=== PATIENT | male | born 1960 | race Caucasian/White ===

== ENCOUNTER 2022-09-17 18:04 | Inpatient (IN) | payer MEDICAID ==
[~2022-09-17] VITALS: Ht 188 cm; Wt 68.0 kg
[~2022-09-17 18:04] MED LIST: BENA5TAB9 PO; OLAN2.5T2 PO
[2022-09-17] MEDS ORDERED: PIPERACILLIN-TAZOB 3.375GM 100 ML IV ONE (19:00)
[2022-09-17 19:33] LABS: Basophils # (auto) 0.1 10 ^3/uL (0-0.2); Eosinophils # (auto) 0.3 10 ^3/uL (0-0.8); Hematocrit 29.1 % (41.0-53.0); Lymphocytes # (auto) 1.1 10 ^3/uL (0.4-5.4); Mean Corpuscular Hemoglobin 29.1 pg (28.0-32.0); Neutrophils # (auto) 7.5 10 ^3/uL (1.6-8.6); Red Cell Distribution Width 14.8 % (11.8-14.3)
[2022-09-17 19:34] LABS: Eosinophils % (auto) 2.7 % (0.0-7.0); Hemoglobin 9.8 g/dL (13.5-17.5); Lymphocytes % (auto) 10.8 % (10.0-50.0); Mean Corpuscular Hgb Conc. 33.8 g/dL (32.0-36.0); Mean Corpuscular Volume 86.2 fL (80.0-100.0); Monocytes # (auto) 1.1 10 ^3/uL (0-1.3); Monocytes % (auto) 10.8 % (0.0-12.0); Neutrophils % (auto) 74.7 % (37.0-80.0); Red Blood Cells 3.38 10^6/uL (4.5-5.90)
[2022-09-17 19:56] LABS: Albumin 2.5 g/dL (3.4-5.0); Calcium 7.8 mg/dL (8.5-10.1); Potassium 3.9 mmol/L (3.5-5.1)
[2022-09-17 19:58] LABS: BUN/Creatinine Ratio 15.7 (10.0-20.0)
[2022-09-17 19:59] LABS: Bilirubin, Total 0.1 mg/dL (0.2-1.0); Total Protein 6.8 g/dL (6.4-8.2)
[2022-09-17] MEDS ORDERED: ONDANSETRON HCL 4 MG/2 ML VIAL IV PRN (21:30)
[2022-09-17] MEDS ORDERED: ACETAMINOPHEN 325 MG TAB PO PRN (21:30)
[2022-09-17] MEDS ORDERED: DOCUSATE SOD 100 MG CAP PO PRN (21:30)
[2022-09-17] MEDS ORDERED: ALBUMIN 25% 100 ML IV ONE (21:30)
[2022-09-17] MEDS ORDERED: HYDROcodone-ACET 5/325MG TAB PO PRN (21:30)
[2022-09-17] MEDS ORDERED: MORPHINE SULFATE INJ 2 MG/ml SYRG IV PRN (21:45)
[2022-09-17] MEDS ORDERED: NITROGLYCERIN 0.4 MG SL TAB SL PRN (21:45)
[2022-09-17] MEDS: SODIUM CHLORIDE 0.9% 1,000 ML IV SCH (22:06)
[2022-09-18 02:43] VITALS: BP 166/98
[2022-09-18] MEDS: hydrALAZINE HCL 20 MG/ML VL IV PRN (02:43)
[2022-09-18] MEDS ORDERED: PIPERACILLIN-TAZOB 3.375GM 100 ML IV SCH (08:00)
[2022-09-18 09:00] VITALS: BP 125/78
[2022-09-18] MEDS: ENOXAPARIN SOD 40 MG/0.4 ML SYRINGE SC SCH (09:48)
[2022-09-18 13:00] VITALS: BP 129/76
[2022-09-18 13:27] LABS: Basophils # (auto) 0.1 10 ^3/uL (0-0.2); Basophils % (auto) 1.2 % (0.0-2.0); Eosinophils # (auto) 0.2 10 ^3/uL (0-0.8); Eosinophils % (auto) 2.5 % (0.0-7.0); Hematocrit 29.8 % (41.0-53.0); Hemoglobin 9.8 g/dL (13.5-17.5); Lymphocytes # (auto) 1.3 10 ^3/uL (0.4-5.4); Lymphocytes % (auto) 16.3 % (10.0-50.0); Mean Corpuscular Hemoglobin 29.1 pg (28.0-32.0); Mean Corpuscular Volume 88.1 fL (80.0-100.0); Monocytes # (auto) 0.7 10 ^3/uL (0-1.3); Monocytes % (auto) 9.4 % (0.0-12.0); Neutrophils # (auto) 5.5 10 ^3/uL (1.6-8.6); Neutrophils % (auto) 70.6 % (37.0-80.0); Red Blood Cells 3.38 10^6/uL (4.5-5.90); White Blood Cell 7.8 10^3/uL (4.4-10.8)
[2022-09-18 13:49] LABS: Albumin 2.5 g/dL (3.4-5.0); Calcium 7.7 mg/dL (8.5-10.1); Potassium 4.4 mmol/L (3.5-5.1)
[2022-09-18 13:53] LABS: BUN/Creatinine Ratio 13.5 (10.0-20.0); Bilirubin, Total 0.2 mg/dL (0.2-1.0); Total Protein 5.9 g/dL (6.4-8.2)
[2022-09-18] MEDS ORDERED: VANCOMYCIN 1GM/250ML 250 ML IV ONE (16:00)
[2022-09-18] MEDS ORDERED: VANCOMYCIN PER PHARMACY 0 MG IV SCH (16:00)
[2022-09-18 17:00] VITALS: BP 129/78
[2022-09-18] MEDS: SODIUM CHLORIDE 0.9% 1,000 ML IV SCH (17:07)
[2022-09-18 20:00] VITALS: BP 149/96
[2022-09-18] MEDS: CEFEPIME 1GM/ 50ML 50 ML IV SCH (21:57)
[2022-09-18 22:00] VITALS: BP 149/96
[2022-09-18] MEDS ORDERED: VANCOMYCIN 1GM/250ML 250 ML IV SCH (22:00)
[2022-09-18] MEDS: DAKINS QUARTER STR 0.125% (NaHypochlorite) 473 ML TOPICAL SOL TOP SCH (22:03)
[2022-09-19] VITALS (7 sets, daily range): BP systolic 110–157; BP diastolic 68–102
[2022-09-19] MEDS: VANCOMYCIN 1GM/250ML 250 ML IV SCH ×2 (04:32→17:49)
[2022-09-19] MEDS: hydrALAZINE HCL 20 MG/ML VL IV PRN (06:11)
[2022-09-19] MEDS: CEFEPIME 1GM/ 50ML 50 ML IV SCH ×3 (06:13→22:15)
[2022-09-19] MEDS: SODIUM CHLORIDE 0.9% 1,000 ML IV SCH ×2 (06:50→23:43)
[2022-09-19] MEDS: DAKINS QUARTER STR 0.125% (NaHypochlorite) 473 ML TOPICAL SOL TOP SCH ×2 (10:00→22:15)
[2022-09-19] MEDS: ENOXAPARIN SOD 40 MG/0.4 ML SYRINGE SC SCH (10:42)
[2022-09-20 05:00] VITALS: BP 136/91
[2022-09-20] MEDS: VANCOMYCIN 1GM/250ML 250 ML IV SCH ×3 (05:00→22:06)
[2022-09-20] MEDS: CEFEPIME 1GM/ 50ML 50 ML IV SCH ×3 (05:43→23:12)
[2022-09-20 07:30] VITALS: BP 120/87
[2022-09-20 09:25] VITALS: BP 120/87
[2022-09-20] MEDS: DAKINS QUARTER STR 0.125% (NaHypochlorite) 473 ML TOPICAL SOL TOP SCH ×2 (10:00→22:00)
[2022-09-20] MEDS: ENOXAPARIN SOD 40 MG/0.4 ML SYRINGE SC SCH (10:13)
[2022-09-20 13:03] VITALS: BP 135/81
[2022-09-20] MEDS: SODIUM CHLORIDE 0.9% 1,000 ML IV SCH (16:10)
[2022-09-20 22:00] VITALS: BP 137/94
[2022-09-21] VITALS (7 sets, daily range): BP systolic 129–153; BP diastolic 93–102
[2022-09-21] MEDS: CEFEPIME 1GM/ 50ML 50 ML IV SCH ×2 (05:57→15:14)
[2022-09-21] MEDS: DAKINS QUARTER STR 0.125% (NaHypochlorite) 473 ML TOPICAL SOL TOP SCH (10:00)
[2022-09-21] MEDS: SODIUM CHLORIDE 0.9% 1,000 ML IV SCH (10:46)
[2022-09-21] MEDS: VANCOMYCIN 1GM/250ML 250 ML IV SCH ×2 (10:46→23:18)
[2022-09-21] MEDS: ENOXAPARIN SOD 40 MG/0.4 ML SYRINGE SC SCH (10:47)
[2022-09-22] MEDS: DAKINS QUARTER STR 0.125% (NaHypochlorite) 473 ML TOPICAL SOL TOP SCH ×3 (00:06→21:24)
[2022-09-22] MEDS: SODIUM CHLORIDE 0.9% 1,000 ML IV SCH ×2 (01:30→18:23)
[2022-09-22] MEDS: CEFEPIME 1GM/ 50ML 50 ML IV SCH ×3 (03:24→21:24)
[2022-09-22 05:00] VITALS: BP 148/91
[2022-09-22 09:00] VITALS: BP 140/91
[2022-09-22] MEDS: ENOXAPARIN SOD 40 MG/0.4 ML SYRINGE SC SCH (09:33)
[2022-09-22] MEDS: VANCOMYCIN 1GM/250ML 250 ML IV SCH ×2 (11:38→21:24)
[2022-09-22 13:00] VITALS: BP 143/89
[2022-09-22 17:00] VITALS: BP 148/97
[2022-09-22] MEDS: Juven Orange Powder PACKET 27.5gm PO SCH (17:20)
[2022-09-22 20:00] VITALS: BP 138/79
[2022-09-22 22:00] VITALS: BP 138/79
[2022-09-23 05:00] VITALS: BP 131/88
[2022-09-23] MEDS: CEFEPIME 1GM/ 50ML 50 ML IV SCH ×2 (05:37→13:03)
[2022-09-23] MEDS: SODIUM CHLORIDE 0.9% 1,000 ML IV SCH (05:49)
[2022-09-23] MEDS: Juven Orange Powder PACKET 27.5gm PO SCH ×2 (08:00→17:06)
[2022-09-23 09:00] VITALS: BP 154/97
[2022-09-23] MEDS: ENOXAPARIN SOD 40 MG/0.4 ML SYRINGE SC SCH (10:00)
[2022-09-23] MEDS: VANCOMYCIN 1GM/250ML 250 ML IV SCH (10:00)
[2022-09-23] MEDS: DAKINS QUARTER STR 0.125% (NaHypochlorite) 473 ML TOPICAL SOL TOP SCH (10:00)
[2022-09-23] MEDS ORDERED: AUG875T PO (10:50)
[2022-09-23 13:00] VITALS: BP 135/92
== END 2022-09-23 18:25 | disposition home health service (06) | DRG 844 ==
LOC: ER 18:04 → EDBD 18:04 → OVERFLOW 21:42 → WEST WING 09-18 01:55
PROVIDERS: ADMIT Nurse Practitioner Family; ATTEND Internal Medicine Geriatric Medicine
DX: T25.022A Burn of unspecified degree of left foot, initial encounter (principal); E44.0 Moderate protein-calorie malnutrition; L03.116 Cellulitis of left lower limb; E88.09 Other disorders of plasma-protein metabolism, not elsewhere classified; L97.529 Non-pressure chronic ulcer of other part of left foot with unspecified severity; D75.839 Thrombocytosis, unspecified; D64.9 Anemia, unspecified; F17.200 Nicotine dependence, unspecified, uncomplicated; X08.8XXA Exposure to other specified smoke, fire and flames, initial encounter; Y93.89 Activity, other specified; Y92.89 Other specified places as the place of occurrence of the external cause; Z68.1 Body mass index [BMI] 19.9 or less, adult; Z88.8 Allergy status to other drugs, medicaments and biological substances; Y99.8 Other external cause status
CPT/HCPCS: 36415; 73630; 80053; 80202; 82565; 85025; 87077; 87186; 87205; 93971; 96365; 96366; 96368; G0378; J2543; P9047

== ENCOUNTER 2022-12-21 14:35 | Inpatient (IN) | payer MEDICAID ==
[~2022-12-21] VITALS: Ht 182.9 cm; Wt 68.3 kg
[~2022-12-21 14:35] MED LIST changes: +AUG875T PO
[2022-12-21 15:56] LABS: Basophils # (auto) 0.1 10 ^3/uL (0-0.2); Eosinophils # (auto) 0.1 10 ^3/uL (0-0.8); Hematocrit 32.6 % (41.0-53.0); Hemoglobin 10.5 g/dL (13.5-17.5); Mean Corpuscular Hgb Conc. 32.3 g/dL (32.0-36.0); Monocytes # (auto) 0.6 10 ^3/uL (0-1.3); Neutrophils # (auto) 3.4 10 ^3/uL (1.6-8.6); White Blood Cell 5.2 10^3/uL (4.4-10.8)
[2022-12-21 15:57] LABS: Basophils % (auto) 2.5 % (0.0-2.0); Eosinophils % (auto) 2.6 % (0.0-7.0); Lymphocytes % (auto) 19.6 % (10.0-50.0); Mean Corpuscular Hemoglobin 25.6 pg (28.0-32.0); Mean Corpuscular Volume 79.4 fL (80.0-100.0); Monocytes % (auto) 10.7 % (0.0-12.0); Neutrophils % (auto) 64.6 % (37.0-80.0); Red Cell Distribution Width 16.7 % (11.8-14.3)
[2022-12-21 16:15] LABS: Albumin 4.2 g/dL (3.2-4.8); Alkaline Phosphatase 90 U/L (46-116); Anion Gap 5 (5-15); Aspartate Aminotransferase 11 U/L (13-40); BUN/Creatinine Ratio 10.3 (10.0-20.0); Bilirubin, Total 0.2 mg/dL (0.2-1.0); Blood Urea Nitrogen 10 mg/dL (9-23); Calcium 9.3 mg/dL (8.5-10.1); Carbon Dioxide 27 mmol/L (20-30); Chloride 102 mmol/L (98-107); Glucose 104 mg/dL (74-106); Potassium 4.2 mmol/L (3.5-5.1); Sodium 134 mmol/L (136-145); Total Protein 7.8 g/dL (5.7-8.2)
[2022-12-21 16:16] LABS: Alanine Aminotransferase < 9 U/L (7-40)
[2022-12-21] MEDS ORDERED: VANCOMYCIN 1GM/250ML 250 ML IV ONE (16:30)
[2022-12-21] MEDS ORDERED: ACETAMINOPHEN 325 MG TAB PO PRN (16:45)
[2022-12-21] MEDS ORDERED: VANCOMYCIN PER PHARMACY 0 MG IV SCH (16:45)
[2022-12-21 17:06] LABS: Erythrocyte Sedimentation Rate 64 mm/hr (0-20)
[2022-12-21] MEDS: SODIUM CHLORIDE 0.9% 1,000 ML IV SCH (17:17)
[2022-12-21 19:25] VITALS: PULSE 84; RESP 14; O2SAT 97
[2022-12-21] MEDS: OLANZapine 5 MG TAB PO SCH (22:22)
[2022-12-21] MEDS: ASCORBIC ACID 500 MG TAB PO SCH (22:22)
[2022-12-21 22:53] LABS: Urine Bacteria NONE SEEN /hpf (None Seen); Urine Blood Negative /uL (Negative); Urine Clarity Clear (Clear); Urine Color Yellow (Yellow); Urine Hyaline Cast FEW /lpf (0 - 2); Urine Protein, UAD Negative (Negative); Urine Specific Gravity 1.011 (1.001-1.035); Urine Urobilinogen Normal (Negative); Urine WBC <1 /hpf (0 - 3); Urine pH 6.5 (5.0-8.0)
[2022-12-22] VITALS (7 sets, daily range): BP systolic 125–156; BP diastolic 69–103; PULSE 60–75; RESP 15–18; TEMP 97.4–98.5; O2SAT 97–99
[2022-12-22] MEDS: SODIUM CHLORIDE 0.9% 1,000 ML IV SCH ×3 (01:06→14:24)
[2022-12-22] MEDS ORDERED: VANCOMYCIN 750mg/250ml 250 ML IV SCH ×2 (05:00→05:15)
[2022-12-22] MEDS: OLANZapine 5 MG TAB PO SCH ×2 (08:44→21:43)
[2022-12-22] MEDS: ZINC SULFATE 220mg CAP or TAB PO SCH (08:51)
[2022-12-22] MEDS: ASCORBIC ACID 500 MG TAB PO SCH ×2 (08:51→21:43)
[2022-12-22] MEDS: MULTIPLE VITAMIN TAB PO SCH (08:51)
[2022-12-22] MEDS: BENAZEPRIL HCL 10 MG TAB PO SCH (08:52)
[2022-12-22] MEDS: ENOXAPARIN SOD 40 MG/0.4 ML SYRINGE SC SCH (08:55)
[2022-12-22] MEDS: VANCOMYCIN 750mg/250ml 250 ML IV SCH ×2 (08:57→20:08)
[2022-12-22 14:03] LABS: Basophils # (auto) 0.1 10 ^3/uL (0-0.2); Eosinophils # (auto) 0.3 10 ^3/uL (0-0.8); Eosinophils % (auto) 4.4 % (0.0-7.0)
[2022-12-22 14:04] LABS: Basophils % (auto) 1.4 % (0.0-2.0); Hematocrit 32.6 % (41.0-53.0); Hemoglobin 10.6 g/dL (13.5-17.5); Lymphocytes # (auto) 0.9 10 ^3/uL (0.4-5.4); Lymphocytes % (auto) 15.6 % (10.0-50.0); Mean Corpuscular Hemoglobin 26.1 pg (28.0-32.0); Mean Corpuscular Hgb Conc. 32.7 g/dL (32.0-36.0); Monocytes # (auto) 0.6 10 ^3/uL (0-1.3); Monocytes % (auto) 10.4 % (0.0-12.0); Neutrophils # (auto) 4.1 10 ^3/uL (1.6-8.6); Neutrophils % (auto) 68.2 % (37.0-80.0); Red Blood Cells 4.07 10^6/uL (4.5-5.90); Red Cell Distribution Width 16.7 % (11.8-14.3)
[2022-12-22] MEDS: ceFAZolin 1GM/50ML 50 ML IV SCH ×2 (14:26→21:43)
[2022-12-22 14:54] LABS: Albumin 3.8 g/dL (3.2-4.8); Alkaline Phosphatase 88 U/L (46-116); Anion Gap 1 (5-15); Aspartate Aminotransferase 8 U/L (13-40); Blood Urea Nitrogen 9 mg/dL (9-23); Calcium 8.7 mg/dL (8.7-10.4); Carbon Dioxide 30 mmol/L (20-30); Chloride 108 mmol/L (98-107); Glucose 88 mg/dL (74-106); Potassium 4.2 mmol/L (3.5-5.1); Sodium 139 mmol/L (136-145)
[2022-12-22 14:55] LABS: Alanine Aminotransferase < 9 U/L (7-40); Bilirubin, Total 0.2 mg/dL (0.2-1.0); Total Protein 6.9 g/dL (5.7-8.2)
[2022-12-22] MEDS ORDERED: OLAN2.5T38 PO (15:54)
[2022-12-22] MEDS ORDERED: BENA5TAB9 PO (15:54)
[2022-12-23] MEDS: SODIUM CHLORIDE 0.9% 1,000 ML IV SCH ×3 (00:44→18:45)
[2022-12-23] MEDS: ceFAZolin 1GM/50ML 50 ML IV SCH ×3 (05:40→21:48)
[2022-12-23 07:12] LABS: Basophils # (auto) 0.1 10 ^3/uL (0-0.2); Basophils % (auto) 1.4 % (0.0-2.0); Eosinophils # (auto) 0.4 10 ^3/uL (0-0.8); Lymphocytes # (auto) 1.4 10 ^3/uL (0.4-5.4); Monocytes # (auto) 0.6 10 ^3/uL (0-1.3); Monocytes % (auto) 9.3 % (0.0-12.0)
[2022-12-23 07:15] LABS: Eosinophils % (auto) 5.9 % (0.0-7.0); Hematocrit 32.5 % (41.0-53.0); Hemoglobin 10.2 g/dL (13.5-17.5); Lymphocytes % (auto) 22.9 % (10.0-50.0); Mean Corpuscular Hemoglobin 25.5 pg (28.0-32.0); Mean Corpuscular Hgb Conc. 31.5 g/dL (32.0-36.0); Mean Corpuscular Volume 81.1 fL (80.0-100.0); Neutrophils # (auto) 3.7 10 ^3/uL (1.6-8.6); Neutrophils % (auto) 60.5 % (37.0-80.0); Red Blood Cells 4.01 10^6/uL (4.5-5.90); Red Cell Distribution Width 17.4 % (11.8-14.3); White Blood Cell 6.1 10^3/uL (4.4-10.8)
[2022-12-23 07:28] LABS: Albumin 3.3 g/dL (3.2-4.8); Alkaline Phosphatase 67 U/L (46-116); Anion Gap 6 (5-15); BUN/Creatinine Ratio 17.3 (10.0-20.0); Blood Urea Nitrogen 14 mg/dL (9-23); Calcium 8.4 mg/dL (8.5-10.1); Carbon Dioxide 24 mmol/L (20-30); Chloride 110 mmol/L (98-107); Glucose 93 mg/dL (74-106); Potassium 4.3 mmol/L (3.5-5.1); Sodium 140 mmol/L (136-145)
[2022-12-23 07:29] LABS: Aspartate Aminotransferase 8 U/L (13-40); Bilirubin, Total 0.2 mg/dL (0.2-1.0); Total Protein 5.8 g/dL (5.7-8.2)
[2022-12-23 07:35] LABS: Alanine Aminotransferase < 9 U/L (7-40)
[2022-12-23 07:39] LABS: INR 1.1 (0.9-1.15); Partial Thromboplastin Time 28.6 SEC (24.5-34.5); Prothrombin Time 11.5 sec (9.3-11.8)
[2022-12-23] MEDS: VANCOMYCIN 750mg/250ml 250 ML IV SCH ×2 (08:45→20:26)
[2022-12-23] MEDS: MULTIPLE VITAMIN TAB PO SCH (09:58)
[2022-12-23] MEDS: OLANZapine 5 MG TAB PO SCH ×2 (09:58→20:26)
[2022-12-23] MEDS: ZINC SULFATE 220mg CAP or TAB PO SCH (09:58)
[2022-12-23] MEDS: BENAZEPRIL HCL 10 MG TAB PO SCH (09:58)
[2022-12-23] MEDS: ASCORBIC ACID 500 MG TAB PO SCH ×2 (09:58→20:26)
[2022-12-23] MEDS: ENOXAPARIN SOD 40 MG/0.4 ML SYRINGE SC SCH (09:59)
[2022-12-23] MEDS ORDERED: DAKINS QUARTER STR 0.125% (NaHypochlorite) 473 ML TOPICAL SOL TOP ONE (11:45)
[2022-12-23] MEDS ORDERED: LIDOCAINE 1% HCL (LOCAL ANESTH.) INJ 20ML MDV ONE ×3 (12:14→12:28)
[2022-12-23] MEDS ORDERED: BUPIVACAINE 0.5% P/F INJ 10 ML VIAL ONE (12:15)
[2022-12-23] MEDS ORDERED: MIDAZOLAM HCL 2MG/2ML 2ml VIAL (1mg/ml) ONE (12:33)
[2022-12-23] MEDS ORDERED: MEPERIDINE HCL (25 MG/ML) 1ML VIAL ONE (12:33)
[2022-12-23] MEDS ORDERED: fentaNYL CITRATE 100 MCG/2 ML VL ONE (12:33)
[2022-12-23] MEDS ORDERED: PROPOFOL 10 MG/ML 20 ML IV ONE (13:20)
[2022-12-23] MEDS ORDERED: DexAMETHasone SOD PHOS 10MG/1ML VIAL INJ ONE (13:20)
[2022-12-23 13:24] VITALS: O2SAT 100
[2022-12-23] MEDS ORDERED: HYDROmorphone HCL 2 MG/ML VL/or syr IV PRN (13:30)
[2022-12-23] MEDS ORDERED: MIDAZOLAM HCL 2MG/2ML 2ml VIAL (1mg/ml) IV PRN (13:30)
[2022-12-23] MEDS ORDERED: LABETALOL HCL 5 MG/ML 4ML SYRINGE IV PRN (13:30)
[2022-12-23] MEDS ORDERED: ePHEDrine SULFATE 50 MG/ML AMP IV PRN (13:30)
[2022-12-23] MEDS ORDERED: ONDANSETRON HCL 4 MG/2 ML VIAL IV PRN (13:30)
[2022-12-23] MEDS ORDERED: MORPHINE SULFATE 4 MG/ML SYR/VIAL IV PRN (13:30)
[2022-12-23 16:51] VITALS: BP 139/78; PULSE 79; RESP 20; TEMP 98.4; O2SAT 96
[2022-12-23 22:00] VITALS: BP 139/99; PULSE 85; RESP 20; TEMP 98.7; O2SAT 100
[2022-12-24] MEDS: ceFAZolin 1GM/50ML 50 ML IV SCH ×3 (05:02→23:07)
[2022-12-24] MEDS: SODIUM CHLORIDE 0.9% 1,000 ML IV SCH ×3 (05:02→20:31)
[2022-12-24] MEDS: BENAZEPRIL HCL 10 MG TAB PO SCH ×2 (10:32→15:42)
[2022-12-24] MEDS: MULTIPLE VITAMIN TAB PO SCH (10:45)
[2022-12-24] MEDS: ZINC SULFATE 220mg CAP or TAB PO SCH (10:45)
[2022-12-24] MEDS: ASCORBIC ACID 500 MG TAB PO SCH ×2 (10:45→23:07)
[2022-12-24] MEDS: ENOXAPARIN SOD 40 MG/0.4 ML SYRINGE SC SCH (10:45)
[2022-12-24] MEDS: VANCOMYCIN 750mg/250ml 250 ML IV SCH ×2 (10:45→20:31)
[2022-12-24] MEDS: OLANZapine 5 MG TAB PO SCH ×2 (10:45→23:07)
[2022-12-24 19:45] VITALS: PULSE 96; RESP 18; O2SAT 99
[2022-12-24 22:00] VITALS: BP 137/89; PULSE 103; RESP 18; TEMP 98; O2SAT 97
[2022-12-25] MEDS: SODIUM CHLORIDE 0.9% 1,000 ML IV SCH ×2 (04:34→12:30)
[2022-12-25 05:00] VITALS: BP 129/84; PULSE 94; RESP 17; TEMP 98.4; O2SAT 97
[2022-12-25] MEDS: ceFAZolin 1GM/50ML 50 ML IV SCH (07:11)
[2022-12-25 08:00] VITALS: PULSE 89; RESP 17; O2SAT 97
[2022-12-25] MEDS: VANCOMYCIN 750mg/250ml 250 ML IV SCH (08:01)
[2022-12-25 09:00] VITALS: BP 127/81; PULSE 84; RESP 18; TEMP 97.9; O2SAT 99
[2022-12-25] MEDS ORDERED: CIPR-173 PO (09:03)
[2022-12-25] MEDS ORDERED: HYDR-4902 PO (09:04)
[2022-12-25] MEDS ORDERED: TRAM50TA2 PO (09:10)
[2022-12-25] MEDS ORDERED: ACE650RS PO (09:12)
[2022-12-25] MEDS: ENOXAPARIN SOD 40 MG/0.4 ML SYRINGE SC SCH (10:00)
[2022-12-25] MEDS ORDERED: CEFTRIAXONE SODIUM 2 GM in D5W 5% 100 ML IV SCH (10:00)
[2022-12-25] MEDS: ASCORBIC ACID 500 MG TAB PO SCH (10:05)
[2022-12-25] MEDS: ZINC SULFATE 220mg CAP or TAB PO SCH (10:06)
[2022-12-25] MEDS: MULTIPLE VITAMIN TAB PO SCH (10:06)
[2022-12-25] MEDS: OLANZapine 5 MG TAB PO SCH (10:07)
[2022-12-25] MEDS: BENAZEPRIL HCL 10 MG TAB PO SCH (10:07)
[2022-12-25 13:21] VITALS: BP 150/63; TEMP 36.6
== END 2022-12-25 15:00 | disposition home or self-care (01) | DRG 383 ==
LOC: ER 14:35 → OVERFLOW 16:36 → CENTRAL 12-22 03:10
PROVIDERS: ADMIT Nurse Practitioner Family; ATTEND Family Medicine
PROC: 0HBNXZZ Excision of Left Foot Skin, External Approach (ICD-10-PCS; principal; 2022-12-23 12:36)
DX: L03.116 Cellulitis of left lower limb (principal); E44.0 Moderate protein-calorie malnutrition; D64.9 Anemia, unspecified; B96.4 Proteus (mirabilis) (morganii) as the cause of diseases classified elsewhere; F17.210 Nicotine dependence, cigarettes, uncomplicated; I10 Essential (primary) hypertension; Z60.2 Problems related to living alone; S91.302A Unspecified open wound, left foot, initial encounter; X58.XXXA Exposure to other specified factors, initial encounter; Z71.6 Tobacco abuse counseling; Z82.49 Family history of ischemic heart disease and other diseases of the circulatory system; Y93.89 Activity, other specified; Z68.20 Body mass index [BMI] 20.0-20.9, adult; Y92.89 Other specified places as the place of occurrence of the external cause; Y99.8 Other external cause status
CPT/HCPCS: 36415; 71045; 73700; 80053; 80202; 81001; 85025; 85610; 85652; 85730; 87077; 87186; 87205; 93005; 93926; G0378; J0690; J0696; J1100; J2001; J2250; J2704; J3490; J7060

== ENCOUNTER 2024-02-21 14:48 | Emergency (ER) | payer MEDICAID ==
[~2024-02-21] VITALS: Ht 167.6 cm; Wt 60.0 kg
[~2024-02-21 14:48] MED LIST changes: +ACE650RS PO; +CIPR-173 PO; -OLAN2.5T2 PO; +OLAN2.5T38 PO
[2024-02-21 15:25] VITALS: PULSE 109; RESP 16; O2SAT 99
--- NOTE | 2024-02-21 15:29 | ED.PDOC ---
History of Present Illness HPI Comments 63 y/o M, with a Hx of anemia, HTN, and polysubstance abuse, is BIBA for c/o ALOC s/p seizure-like activity, today. Per EMS report, patient's neighbor called after witnessing the patient, suddenly, laid himself next to his vehicle, while outside, and proceeded to have a seizure, where his body "stiffen" then. On scene, patient was found next to his vehicle, w/o oral trauma or incontinence, stating non-comprehensible sentences, with a GCS 11, blood glucose of 144, and all remaining vitals within normal limits. EMS states on aforementioned personal reporting on patient acting different from his normal baseline. Patient has no other reported associated symptoms. Further Hx cannot be obtain, due to patient's current altered condition and absence of family/rn managed care historians, at time of assessment. Chief Complaint: Seizure Time Seen by MD: 15:10 Primary Care Provider: DANIEL Reviewed Notes: Nurses Notes, Car Installations Supervisor Notes, Medications, Allergies Allergies: Coded Allergies: Ibuprofen (Verified Adverse Reaction, Unknown, 02/02/10) Home Meds Active Scripts Acetaminophen (Tylenol) 650 Mg Rc, 650 MG PO TID, #30 SUPP.RECT Prov:DIPIKA LI MD 12/25/22 Ciprofloxacin Hcl (Cipro) 500 Mg Tab, 1 TAB PO BID, #60 TAB Prov:DIPIKA LI MD 12/25/22 Amoxicillin & Pot Clavulanate (AUGMENTIN TABLET) 875 Mg Tb, 875 MG PO BID for 10 Days, #20 TAB Prov:STALIN DAN MD 09/23/22 Reported Medications Benazepril Hcl (Benazepril Hcl) 5 Mg Tab, 5 MG PO DAILY, MG 12/22/22 Olanzapine (OLANZAPINE) 2.5 Mg Tab, 2 TAB PO DAILY for 30 Days, MG 12/22/22 Information Source: Patient, Emergency Med Personnel Mode of Arrival: EMS Severity: Moderate Timing: Hours Duration: Minutes Prehospital treatment: 12 Lead EKG, Accucheck (144), Fitting Room Attendant Past Medical History PAST MEDICAL HISTORY: Anemia, HTN Surgical History: Denies all surgeries Family History Family History: Family hx of HTN Social History Smoker: Cigarettes Alcohol: Occasionally Drugs: Marijuana Lives In: Home Constitutional: denies: chills, diaphoresis, fatigue, fever, malaise, sweats, weakness, others EENTM: denies: blurred vision, double vision, ear bleeding, ear discharge, ear drainage, ear pain, ear ringing, eye pain, eye redness, hearing loss, mouth pain, mouth swelling, nasal discharge, nose bleeding, nose congestion, nose pain, photophobia, tearing, throat pain, throat swelling, voice changes, others Respiratory: denies: cough, hemoptysis, orthopnea, SOB at rest, shortness of breath, SOB with excertion, stridor, wheezing, others Cardiovascular: denies: chest pain, dizzy spells, diaphoresis, Dyspnea on exertion, edema, irregular heart beat, left arm pain, lightheadedness, palpitations, PND, syncope, others Gastrointestinal: denies: abdomen distended, abdominal pain, blood streaked bowels, constipated, diarrhea, dysphagia, difficulty swallowing, hematemesis, melena, nausea, poor appetite, poor fluid intake, rectal bleeding, rectal pain, vomiting, others Genitourinary: denies: burning, dysuria, flank pain, frequency, hematuria, incontinence, penile discharge, penile sore, pain, testicle pain, testicle sw elling, urgency, others Neurological: reports: seizure; denies: dizziness, fainting, headache, left sided numbness, left sided weakness, numbness, paresthesia, pre-existing deficit, right sided numbness, right sided weakness, speech problems, tingling, tremors, weakness, others Musculoskeletal: denies: back pain, gout, joint pain, joint swelling, muscle pain, muscle stiffness, neck pain, others Integumetry: denies: bruises, change in color, change in hair/nails, dryness, laceration, lesions, lumps, rash, wounds, others Allergic/Immunocompromised: denies: Difficulty Healing, Frequent Infections, Hives, Itching, others Hematologic/Lymphatic: denies: anemia, blood clots, easy bleeding, easy bruising, swollen glands, others Endocrine: denies: excessive hunger, excessive sweating, excessive thirst, excessive urination, flushing, intolerance to cold, intolerance to heat, unexplained weight gain, unexplained weight loss, others Psychiatric: denies: anxiety, bipolar disorder, depression, hopeless, panic disorder, schizophrenia, sleepless, suicidal, others All Other Systems: Reviewed and Negative Physical Exam General Appearance: No Apparent Distress HEENT: Normal ENT Inspection, Pharynx Normal, TMs Normal Neck: Full Range of Motion, Non-Tender, Normal, Normal Inspection Respiratory: Chest Non-Tender, Lungs Clear, No Accessory Muscle Use, No Respiratory Distress, Normal Breath Sounds Cardiovascular: No Edema, No JVD, No Murmur, No Gallop, Normal Peripheral P ulses, Regular Rate/Rhythm Breast Exam: Deferred Gastrointestinal: No Organomegaly, Non Tender, No Pulsatile Mass, Normal Bowel Sounds, Soft Genitalia: Deferred Pelvic: Deferred Rectal: Deferred Extremities: No calf tenderness, Normal capillary refill, No pedal edema Musculoskeletal : Apperance: Normal Neurologic: Alert, box brander II-XII nml as Tested, No Motor Deficits, Normal Affect, Normal Mood, No Sensory Deficits Cerebellar Function: Normal Reflexes: Normal Skin: Dry, Normal Color, Warm Lymphatic: No Adenopathy Was a procedure done? Was a procedure done?: No Differential Dx Considerations may include: seizure, pseudoseizure, electrolyte imbalance, UTI, intracranial bleed, CVA, TIA, viral syndrome X-Ray, Labs, Meds, VS Vital Signs Date Time Temp Pulse Resp B/P (MAP) Pulse Ox O2 Delivery O2 Flow Rate FiO2 02/21/24 16:15 102 18 160/100 (120) 98 02/21/24 15:25 97.8 116 18 98 97.8 02/21/24 15:25 109 16 99 Room Air* 0 21 Lab Test 02/21/24 15:25 Range/Units White Blood Count 10.8 4.4-10.8 10^3/uL Red Blood Count 4.32 L 4.5-5.90 10^6/uL Hemoglobin 13.5 13.5-17.5 g/dL Hematocrit 40.2 L 41.0-53.0 % Mean Corpuscular Volume 93.1 80.0-100.0 fL Mean Corpuscular Hemoglobin 31.1 28.0-32.0 pg Mean Corpuscular Hemoglobin Concent 33.5 32.0-36.0 g/dL Red Cell Distribution Width 14.2 11.8-14.3 % Platelet Count 347 140-450 10^3/uL Mean Platelet Volume 7.7 6.9-10.8 fL Neutrophils (%) (Auto) 83.3 H 37.0-80.0 % Lymphocytes (%) (Auto) 8.0 L 10.0-50.0 % Monocytes (%) (Auto) 6.6 0.0-12.0 % Eosinophils (%) (Auto) 1.2 0.0-7.0 % Basophils (%) (Auto) 0.9 0.0-2.0 % Neutrophils # (Auto) 9.0 H 1.6-8.6 10 ^3/uL Lymphocytes # (Auto) 0.9 0.4-5.4 10 ^3/uL Monocytes # (Auto) 0.7 0-1.3 10 ^3/uL Eosinophils # (Auto) 0.1 0-0.8 10 ^3/uL Basophils # (Auto) 0.1 0-0.2 10 ^3/uL Nucleated Red Blood Cells 0.1 % Sodium Level 139 136-145 mmol/L Potassium Level 4.2 3.5-5.1 mmol/L Chloride Level 106 98-107 mmol/L Carbon Dioxide Level 24 20-31 mmol/L Anion Gap 9 5-15 Blood Urea Nitrogen 19 9-23 mg/dL Creatinine 1.10 0.700-1.30 mg/dL Glomerular Filtration Rate Calc 75 >90 mL/min BUN/Creatinine Ratio 17.3 10.0-20.0 Serum Glucose 87 74-106 mg/dL Calcium Level 10.1 8.7-10.4 mg/dL Plasma/Serum Blood Alcohol 4.3 <10 mg/dL Current Medications Medications (Trade) Dose Ordered Sig/Beverley Route Start Time Stop Time Status Last Admin Haloperidol Lactate (Haldol) 5 mg ONCE ONCE IM 02/21/24 15:00 02/21/24 15:02 DC 02/21/24 15:54 Diphenhydramine HCl (Benadryl Injection) 25 mg ONCE ONCE IM 02/21/24 15:00 02/21/24 15:02 DC 02/21/24 15:53 Lorazepam (Ativan Inj) 1 mg ONCE ONCE IM 02/21/24 15:00 02/21/24 15:02 DC 02/21/24 15:51 The patient's CBC and chemistry panel is within normal limits The patient was given Haldol 5 mg IM The patient was given Benadryl 25 mg IM The patient was also given Ativan 1 mg IM At this time, the patient was resting comfortably in the bed We are awaiting the patient's urine tox The patient will be signed out to Dr. Gardner Time of 1ST Reevaluation: 15:40 Reevaluation 1ST: Unchanged Patient Education/Counseling: Other (patient is altered ) Family Education/Counseling: No Family Present Departure 1 Departure Time of Disposition: 17:17 Impression: Primary Impression: Psychotic episode Disposition: 30 STILL A PATIENT Condition: Fair Critical Care Note Critical Care Time?: No Stability Stability form required: No Heart Score Heart Score: Heart Score Response (Comments) Value History N/A 0 EKG N/A 0 Age N/A 0 Risk Factors N/A 0 Troponin N/A 0 Total 0 I personally scribed for RANI CUMMINGS MD ([email or web address]) on 02/21/24 at 15:29. Electronically submitted by Osito Euceda [email or web address]). RANI CUMIMNGS MD Feb 21, 2024 15:29
[2024-02-21 15:42] LABS: Basophils # (auto) 0.1 10 ^3/uL (0-0.2); Basophils % (auto) 0.9 % (0.0-2.0); Eosinophils # (auto) 0.1 10 ^3/uL (0-0.8); Eosinophils % (auto) 1.2 % (0.0-7.0); Hematocrit 40.2 % (41.0-53.0); Hemoglobin 13.5 g/dL (13.5-17.5); Lymphocytes # (auto) 0.9 10 ^3/uL (0.4-5.4); Mean Corpuscular Hemoglobin 31.1 pg (28.0-32.0); Mean Corpuscular Hgb Conc. 33.5 g/dL (32.0-36.0); Mean Corpuscular Volume 93.1 fL (80.0-100.0); Monocytes # (auto) 0.7 10 ^3/uL (0-1.3); Monocytes % (auto) 6.6 % (0.0-12.0); Neutrophils % (auto) 83.3 % (37.0-80.0); Nucleated Red Blood Cells % 0.1 %; Platelet Count (auto) 347 10^3/uL (140-450); Red Blood Cells 4.32 10^6/uL (4.5-5.90); Red Cell Distribution Width 14.2 % (11.8-14.3); White Blood Cell 10.8 10^3/uL (4.4-10.8)
[2024-02-21] MEDS: LORazepam 2MG/ML-1ML VIAL IM ONE (15:51)
[2024-02-21] MEDS: diphenhdrAMINE HCL 50 MG/1 ML VL IM ONE (15:53)
[2024-02-21] MEDS: HALOPERIDOL LACTATE 5 MG/ML INJ VIAL IM ONE (15:54)
[2024-02-21 16:00] LABS: Chloride 106 mmol/L (98-107); Potassium 4.2 mmol/L (3.5-5.1); Sodium 139 mmol/L (136-145)
[2024-02-21 16:01] LABS: Anion Gap 9 (5-15); Calcium 10.1 mg/dL (8.7-10.4); Carbon Dioxide 24 mmol/L (20-31)
[2024-02-21 16:07] LABS: BUN/Creatinine Ratio 17.3 (10.0-20.0); Blood Alcohol 4.3 mg/dL (<10); Blood Urea Nitrogen 19 mg/dL (9-23); Glucose 87 mg/dL (74-106)
[2024-02-21 19:50] VITALS: PULSE 89; RESP 16; O2SAT 96
[2024-02-21 20:08] LABS: Urine Bacteria None Seen /hpf (None Seen)
[2024-02-21 20:25] LABS: Urine Blood Negative /uL (Negative); Urine Clarity Clear (Clear); Urine Color Light-Yellow (Yellow); Urine Protein, UAD Negative (Negative); Urine Specific Gravity 1.012 (1.001-1.035); Urine Urobilinogen Normal (Negative); Urine WBC 1 /hpf (0 - 3); Urine pH 6.5 (5.0-9.0)
[2024-02-21 20:35] LABS: Amphetamine Screen, Urine Pos (NEGATIVE); Barbiturate Scree,Urine Neg (NEGATIVE); Benzodiazephine Screen, Urine Neg (NEGATIVE); Cannabinoid Screen, Urine Pos (NEGATIVE); Cocaine Screen, Urine Neg (NEGATIVE); Opiate Scree,Urine Neg (NEGATIVE); Phencyclidine Screen, Urine Neg (NEGATIVE)
[2024-02-21 23:00] VITALS: PULSE 89; RESP 16; TEMP 98; O2SAT 96
--- NOTE | 2024-02-22 09:54 | DVHINCON2 ---
Date of Service if different f: Feb 22, 2024 Time of Service: 09:26 Consultation ([facility]) Consulting Physician: MALCOM CARO MD Labs Laboratory Tests Test 02/21/24 15:25 02/21/24 19:56 White Blood Count 10.8 10^3/uL (4.4-10.8) Red Blood Count 4.32 10^6/uL (4.5-5.90) Hemoglobin 13.5 g/dL (13.5-17.5) Hematocrit 40.2 % (41.0-53.0) Mean Corpuscular Volume 93.1 fL (80.0-100.0) Mean Corpuscular Hemoglobin 31.1 pg (28.0-32.0) Mean Corpuscular Hemoglobin Concent 33.5 g/dL (32.0-36.0) Red Cell Distribution Width 14.2 % (11.8-14.3) Platelet Count 347 10^3/uL (140-450) Mean Platelet Volume 7.7 fL (6.9-10.8) Neutrophils (%) (Auto) 83.3 % (37.0-80.0) Lymphocytes (%) (Auto) 8.0 % (10.0-50.0) Monocytes (%) (Auto) 6.6 % (0.0-12.0) Eosinophils (%) (Auto) 1.2 % (0.0-7.0) Basophils (%) (Auto) 0.9 % (0.0-2.0) Neutrophils # (Auto) 9.0 10 ^3/uL (1.6-8.6) Lymphocytes # (Auto) 0.9 10 ^3/uL (0.4-5.4) Monocytes # (Auto) 0.7 10 ^3/uL (0-1.3) Eosinophils # (Auto) 0.1 10 ^3/uL (0-0.8) Basophils # (Auto) 0.1 10 ^3/uL (0-0.2) Nucleated Red Blood Cells 0.1 % Sodium Level 139 mmol/L (136-145) Potassium Level 4.2 mmol/L (3.5-5.1) Chloride Level 106 mmol/L (98-107) Carbon Dioxide Level 24 mmol/L (20-31) Anion Gap 9 (5-15) Blood Urea Nitrogen 19 mg/dL (9-23) Creatinine 1.10 mg/dL (0.700-1.30) Glomerular Filtration Rate Calc 75 mL/min (>90) BUN/Creatinine Ratio 17.3 (10.0-20.0) Serum Glucose 87 mg/dL (74-106) Calcium Level 10.1 mg/dL (8.7-10.4) Plasma/Serum Blood Alcohol 4.3 mg/dL (<10) Urine Color Light-yellow (Yellow) Urine Clarity Clear (Clear) Urine pH 6.5 (5.0-9.0) Urine Specific Ralls 1.012 (1.001-1.035) Urine Protein Negative (Negative) Urine Ketones Negative (Negative) Urine Blood Negative /uL (Negative) Urine Nitrite Negative (Negative) Urine Bilirubin Negative (Negative) Urine Urobilinogen Normal mg/dL (Negative) Urine Leukocyte Esterase Negative /uL (Negative) Urine RBC 1 /hpf (0 - 3) Urine WBC 1 /hpf (0 - 3) Urine Squamous Epithelial Cells None seen /hpf (<5) Urine Bacteria None seen /hpf (None Seen) Urine Glucose Normal mg/dL (Normal) Urine Opiates Screen Neg (NEGATIVE) Urine Fentanyl Screen Neg (NEGATIVE) Urine Barbiturates Screen Neg (NEGATIVE) Urine Phencyclidine Screen Neg (NEGATIVE) Urine Amphetamines Screen Pos (NEGATIVE) Urine Benzodiazepines Screen Neg (NEGATIVE) Urine Cocaine Screen Neg (NEGATIVE) Urine Cannabinoids Screen Pos (NEGATIVE) Appearance: Stated age Psychomotor activity: WNL, Calm Behavioral: Cooperative Eye contact: Appropriate Speech: WNL Affect: Appropriate, Mood Congruent Mood: Euthymic Thought processes: Linear/Goal-directed Thought content: WNL Suicidal ideations: Absent Homicidal ideations: Absent Orientation: Person, Place, Time, Situation Memory intact: Recent Intellect: Average Abstractability: WNL Concentration: Adequate Attention: Adequate Judgement: Poor Insight: Poor Vitals Vital Signs Date Time Temp Pulse Resp B/P (MAP) Pulse Ox O2 Delivery O2 Flow Rate FiO2 02/22/24 08:00 74 02/22/24 07:30 21 140/91 (107) 97 02/21/24 23:00 Room Air* 0 21 02/21/24 23:00 98.0 98.0 Treatment plan discussed: With staff Medication adjusted: No Labs ordered: No Psychotherapy provided: No Type: Voluntary History of Present Illness Reason for Consult : psychiatric evaluation PER ED PHYSICIAN: 63 y/o M, with a Hx of anemia, HTN, and polysubstance abuse, is BIBA for c/o ALOC s/p seizure-like activity, today. Per EMS report, patient's neighbor called after witnessing the patient, suddenly, laid himself next to his vehicle, while outside, and proceeded to have a seizure, where his body "stiffen" then. On scene, patient was found next to his vehicle, w/o oral trauma or incontinence, stating non-comprehensible sentences, with a GCS 11, blood glucose of 144, and all remaining vitals within normal limits. EMS states on aforementioned personal reporting on patient acting different from his normal baseline. Patient has no other reported associated symptoms. Further Hx cannot be obtain, due to patient's current altered condition and absence of family/a auxiliary historians, at time of assessment. PSYCHIATRIST HPI: The patient was seen and evaluated at [facility] ED via telepsychiatry platform. 63 yr old male BIBA after he passed out with odd behavior last night. On arrival in the ED, he was disoriented, confused and aggressive which is different from his baseline. His Urine drug screen was positive for marijuana and amphetamines which he admitted to using meth on an occasional basis. He has no recollection of his behavior or what he did yesterday or last night. He was able to say that he was at [facility] and that it was February 2024 and his memory appeared mostly intact with good attention and concentration and no current cognitive impairment. He reported he had been treated for bipolar disorder in the distant past but that h e hasn't been taking any medication in the recent past. He reported he lives by himself and has a maid who takes him shopping and helps him clean up and take care of himself. He stated he has a place to live and has food that he prepares at home. He denied having suicidal or homicidal ideation. He denied having auditory or visual hallucinations or paranoia. He reported he feels comfortable being discharge to his residence and has no concerns. Past Psychiatric History : Diagnosed with bipolar disorder in the past. Some hospitalizations. No past suicide attempts. Past Medical History: Hypertension, CAD Current Medications: none (history of taking Benazepril 5mg qam and Zyprexa 5mg qhs in his health record, but he denied taking any medication currently) NKDA Substance use: Smokes MJ occasionally. Meth use about monthly. Denied alcohol and other substance use. Social History : Lives by self with behavioral health care manager who takes him shopping. Diagnosis: Unspecified bipolar disorder; Meth use disorder Formulation: This 63 yr old male appears to suffer from bipolar disorder and meth use disorder and appears to have been intoxicated last night which likely led to his bizarre behavior. He is now coherent and rational and calm. He may benefit from follow up with mental health and being on a mood stabilizer such as zyprexa, but is not interested at this time. He does not not meet criteria for involuntary hold. Plan: 1. Safety. The patient is a low risk for self harm and may be managed as an outpatient. 2. Legal-voluntary. 3. Medication: Recommend zyprexa 5mg qhs 4. Follow up with outpatient mental health for medication management and therapy. 5. Case discussed with ED Physician, Damion Feliciano. Assessment/Diagnosis/Plan Reviewed: Labs, Medications, Previous Orders MALCOM CARO MD Feb 22, 2024 09:17
[2024-02-22 10:00] VITALS: BP 146/79; PULSE 73; RESP 12; O2SAT 98
[2024-02-22] MEDS ORDERED: OLAN20TA PO (10:52)
== END 2024-02-22 12:17 | disposition home or self-care (01) ==
LOC: EDBD 14:48 → ER 14:48
DX: F23 Brief psychotic disorder (principal); I10 Essential (primary) hypertension; F17.210 Nicotine dependence, cigarettes, uncomplicated; F15.90 Other stimulant use, unspecified, uncomplicated; Z86.2 Personal history of diseases of the blood and blood-forming organs and certain disorders involving the immune mechanism; Z88.6 Allergy status to analgesic agent; Z79.899 Other long term (current) drug therapy
CPT/HCPCS: 36415; 80048; 80307; 80320; 81001; 85025; 96372; 99285; J1200; J1630; J2060